=== PATIENT | female | born 1975 | race Caucasian/White ===

== ENCOUNTER 2018-07-08 21:41 | Emergency (ER) | payer BC ==
[2018-07-08 22:08] VITALS: BP 148/89; PULSE 71; O2SAT 100
[2018-07-08] MEDS ORDERED: GI COCKTAIL 45 ML (Maalox/Lidocaine) PO ONE (23:16)
--- NOTE | 2018-07-08 23:16 | ERPHSYRPT ---
- History of Present Illness Time Seen by Provider: 07/08/18 22:55 Historian: patient Exam Limitations: no limitations Patient Subjective Stated Complaint: pt reports sharp abdominal pain for the last several days. Triage Nursing Assessment: pt is aox3, pupils perrl, resps easy and non labored , abd is soft, obese, bowel sounds are present x4 quads. abd pain described as sharp and intermittent to the left upper quad. pt denies toileting difficulties. Physician History: 43 y/o white female presents with left upper quadrant abd pain. sx presents intermittently for over a month. occurs typically twice a week then resolves. 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 at this time, pain is very mild but present. 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 pt has been eating, drinking and having bms. pt has had a cholecystectomy. Allergies/Adverse Reactions: No Known Drug Allergies Allergy (Verified 07/08/18 22:07) Home Medications: Levothyroxine Sodium 25 Mcg [Synthroid 25 Mcg] 0 mcg PO DAILY 01/23/14 [ History] Enoxaparin Sodium [Lovenox] 40 mg SQ DAILY 08/02/15 [History] Promethazine HCl 25 mg [Phenergan 25 mg] 1 tab PO Q4H PRN PRN 08/02/15 [ History] Sucralfate 1 gm [Carafate 1 GM] 1 gm PO QID 08/02/15 [History] Hx Tetanus, Diphtheria Vaccination/Date Given: Yes Hx Influenza Vaccination/Date Given: No Hx Pneumococcal Vaccination/Date Given: No Immunizations Up to Date: Yes - Past Medical History Pertinent Past Medical History: Yes Neurological History: No Pertinent History ENT History: No Pertinent History Cardiac History: Hypertension Respiratory History: No Pertinent History Endocrine Medical History: Hypothyroidism Musculoskeletal History: No Pertinent History GI Medical History: Gallbladder Disease History: No Pertinent History Psycho-Social History: No Pertinent History Female Reproductive Disorders: No Pertinent History - Past Surgical History Past Surgical History: Yes Neuro Surgical History: No Pertinent History Cardiac: No Pertinent History Respiratory: No Pertinent History Gastrointestinal: Cholecystectomy, Hernia Repair Genitourinary: No Pertinent History Musculoskeletal: No Pertinent History, Orthopedic Surgery Female Surgical History: No Pertinent History Other Surgical History: rt thumb,tendon repair,iud placed. GASTRIC BYPASS 2015 @ [facility] - Social History Smoking Status: Never smoker Exposure to second hand smoke: No Drug Use: none Patient Lives Alone: No - Female History Hx Last Menstrual Period: IUD- unkown, years ago Hx Now: No - Nursing Vital Signs Nursing Vital Signs: Initial Vital Signs Temperature 99 F 07/08/18 21:59 Pulse Rate 71 07/08/18 21:59 Respiratory Rate 20 07/08/18 21:59 Blood Pressure 148/89 07/08/18 21:59 O2 Sat by Pulse Oximetry 100 07/08/18 21:59 Pain Scale Pain Intensity 7 - Physical Exam General Appearance: no apparent distress, alert, anxiety Eye Exam: PERRL/EOMI, eyes nml inspection Ears, Nose, Throat Exam: normal ENT inspection Neck Exam: normal inspection, non-tender, supple, full range of motion Respiratory Exam: normal breath sounds, lungs clear, airway intact, No chest tenderness, No respiratory distress Cardiovascular Exam: regular rate/rhythm, normal heart sounds, normal peripheral pulses Gastrointestinal/Abdomen Exam: soft, normal bowel sounds, No tenderness, No guarding, No rebound Pelvic Exam: not done Rectal Exam: not done Back Exam: normal inspection, normal range of motion, No CVA tenderness, No vertebral tenderness Extremity Exam: normal inspection, normal range of motion, pelvis stable Neurologic Exam: alert, oriented x 3, cooperative, 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, normal mood/affect, nml cerebellar function, nml station & gait Skin Exam: normal color, warm, dry Lymphatic Exam: No adenopathy SpO2 Interpretation: normal SpO2: 100 Oxygen Delivery: Room Air - Course Nursing assessment & vital signs reviewed: Yes Ordered Tests: Medication Summary Discontinued Medications Generic Name Dose Route Start Last Admin Trade Name Freq PRN Reason Stop Dose Admin Al Hydrox/Mg Hydrox/Simethicone Confirm 07/08/18 23:20 Maalox Es 30 Ml Unit Dose Administered 07/08/18 23:21 Dose 30 ml .ROUTE .STK-MED ONE Lidocaine HCl Confirm 07/08/18 23:20 Xylocaine Hcl Viscous * Administered 07/08/18 23:21 Dose 15 ml .ROUTE .STK-MED ONE Magnesium Hydroxide 45 ml 07/08/18 23:16 07/08/18 23:26 Gi Cocktail 45 Ml (Maalox/Lidocaine) PO 07/08/18 23:17 45 ml STAT ONE Administration - Progress Progress: improved Progress Note: 07/09/18 00:11 pts sx resolved after gi cocktail. pts clinical hx and physical exam reveals no acute abdominal issue. pt decided against a workup of labs, ua and xrays after her sx were completely resolved with gi cocktail Counseled pt/family regarding: diagnosis, need for follow-up - Departure Time of Disposition: 00:12 Departure Disposition: Home Clinical Impression: Gastritis Condition: Stable Critical Care Time: No Referrals: MEGHANN CARIAS MD [Primary Care Provider] - Additional Instructions: avoid fatty, greasy spicy foods. call your bariatric surgeon today for further management.
[2018-07-08] MEDS ORDERED: MAALOX ES 30 ML UNIT DOSE ONE (23:20)
[2018-07-08] MEDS ORDERED: XYLOCAINE HCl Viscous ONE (23:20)
== END 2018-07-09 00:34 | disposition home or self-care (01) ==
LOC: ED 21:41
DX: K29.70 Gastritis, unspecified, without bleeding (principal); R10.12 Left upper quadrant pain; Z79.899 Other long term (current) drug therapy
CPT/HCPCS: 99283; A9270-GY